=== PATIENT | female | born 1980 | race American Indian/Alaskan Native ===

== ENCOUNTER 2018-01-14 07:54 | Day surgery (SDC) | payer OTHER ==
--- NOTE | 2018-01-12 11:17 | History and Physical Report ---
History of Present Illness Date of examination: 01/12/18 History of present illness: History of Present Illness: Patient has been reassessed/reevaluated. H&P has been reviewed. No interval changes. 37 YOBF with missed Patient denies any vaginal bleeding or cramping Medical and surgical treatment options discussed Discussed risks and benefits of expectant management, treatments with medications and dilatation and curretage. Patient desires D&C Blood type O positive Menstrual History: Previous Best Working EDC: 07/11/2018 LMP (date): 10/04/2017 LMP - Character: normal LMP - Reliable: definite Menarche: 16 Menses interval: 30 days Menstrual flow: 4-5 days Past History : 4 Term Births: 3 Premature Births: 0 Living Children: 3 Para: 3 Mult. Births: 0 Prev : 3 Prev. attempt? 0 Aborta: 0 Elect. Ab: 0 Spont. Ab: 0 Ectopics: 0 # 1 Delivery date: 1998 Weeks Gestation: term Delivery type: Sex: Female weight: 5-15 # 2 Delivery date: 2006 Weeks Gestation: term Delivery type: weight: ? 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 of genital herpes: no Hx of STD: none Current Allergies: No known allergies Past Medical History: Negative Past Medical History Past Surgical History: x 3 Family History Summary: Has Family History of Coronary Heart Disease - Please disregard relationships chosen - Entered On: 11/19/2014 Has Family History of Diabetes - Please disregard relationships chosen - Entered On: 11/19/2014 Has Family History of CVA or Stroke - Please disregard relationships chosen - Entered On: 11/19/2014 Has Family History of Hypertension - Please disregard relationships chosen - Entered On: 11/19/2014 Has No Family History of Breast Cancer - Please disregard relationships chosen - Entered On: 11/19/2014 Has No Family History of Colon Cancer - Please disregard relationships chosen - Entered On: 11/19/2014 Has No Family History of Ovarvian Cancer - Please disregard relationships chosen - Entered On: 11/19/2014 Social History: [place] [employer] Patient is single Smoking History: Patient has never smoked. Risk Factors: Smoked Tobacco Use: Never smoker Smokeless Tobacco Use: Never Passive smoke exposure: no Drug use: no HIV high-risk behavior: no Alcohol use: no Exercise: no Seatbelt use: 100 % Review of Systems General Complains of fatigue. Denies fever, chills, sweats, anorexia, weakness, malaise, weight loss and sleep disorder. Denies vaginal discharge, incontinence, dysuria, hematuria, urinary frequency, amenorrhea, menorrhagia, abnormal vaginal bleeding, pelvic pain, genital sores, decreased libido, painful periods, painful sex, urinary urgency, hot flashes, vaginal dryness, vaginal itching and vaginal odor. CV Denies chest pains, palpitations, syncope, dyspnea on exertion, orthopnea, PND and peripheral edema. Resp Denies cough, dyspnea at rest, excessive sputum, hemoptysis, wheezing and pleurisy. GI Complains of nausea. Denies vomiting, diarrhea, constipation, change in bowel habits, abdominal pain, melena, hematochezia, jaundice, gas/bloating, indigestion/heartburn, dysphagia and odynophagia. Breast Denies left breast lump, right breast lump, nipple discharge, bloody discharge from nipple, breast pain, abnormal mammogram and breast enlargement. Psych Denies depression, anxiety, irritability and mood swings. Past History Past Medical History: other (See HPI) Past Surgical History: , Other (See HPI) Social history: other (See HPI) Family history: other (See HPI) Medications and Allergies Allergies Allergy/AdvReac Type Severity Reaction Status Date / Time shrimp Allergy Anaphylaxis Verified 01/14/18 08:25 Home Medications Medication Instructions Recorded Confirmed Last Taken Type Acetaminophen [Tylenol Extra 500 mg PO Q6HR PRN 01/14/18 01/14/18 01/13/18 History Strength] Review of Systems Constitutional: other (See HPI) Exam - Physical Exam Narrative exam: HEENT: normocephalic, no lesions or deformities Skin no abnormal lesions or rashes Chest: respiratory effort normal, clear to auscultation Breasts: skin/areolae normal, no masses, no nipple discharge, no erythema/warmth /tenderness, and axillae normal. 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 No evidence of cystocele or rectocele. Cervix: normal appearance, no lesions, no discharge Uterus: normal position, midline, mobile Adnexae: no masses or tenderness Rectovaginal: exam defered Assessment and Plan - Patient Problems (1) Missed Current Visit: No Status: Acute Plan to address problem: Discussed risk of surgery including infection, bleeding and risk of perforating her uterus. Questions answered. Patient understands and desires to proceed
[~2018-01-14 07:54] MED LIST: MORPHINE IV PRN; PERCOCET 5/325 PO PRN; TORADOL IV PRN; ZOFRAN IV PRN
[2018-01-14] MEDS ORDERED: VERSED IV NR (08:00)
[2018-01-14] MEDS ORDERED: PEPCID IV NR (08:00)
[2018-01-14] MEDS ORDERED: LACTATED RINGERS 1,000 ML IV SCH (08:00)
[2018-01-14] MEDS ORDERED: PEPCID PO NR (08:00)
[2018-01-14] MEDS ORDERED: REGLAN PO NR (08:00)
[2018-01-14] MEDS ORDERED: TRANSDERM-SCOP TD NR (08:00)
[2018-01-14] MEDS ORDERED: NACL BACTERIOSTATIC INFILTRATI ONE (08:33)
--- NOTE | 2018-01-14 08:44 | Anesthesia Consultation ---
Anesthesia Consult and Med Hx Date of service: 01/14/18 - Airway Anesthetic Teeth Evaluation: Good ROM Head & Neck: Adequate Mental/Hyoid Distance: Adequate Mallampati Class: Class II Intubation Access Assessment: Probably Good - Pulmonary Exam CTA: Yes - Cardiac Exam Cardiac Exam: RRR - Pre-Operative Health Status ASA Pre-Surgery Classification: ASA1 Proposed Anesthetic Plan: General - Pulmonary Hx Smoking: No Hx Asthma: Yes (as a child) - Cardiovascular System Hx Hypertension: No - Central Nervous System Hx Seizures: No CVA: No Hx Psychiatric Problems: No - Endocrine Hx End Stage Renal Disease: No Hx Insulin Dependent Diabetes: No - Other Systems Hx Cancer: No Hx Obesity: No
--- NOTE | 2018-01-14 08:44 | Anesthesia Day of Surgery ---
Anesthesia Day of Surgery - Day of Surgery Patient Examined: Yes Patient H&P Reviewed: Yes Patient is NPO: Yes
[2018-01-14 08:57] LABS: Basophils # (Auto) 0.1 K/mm3 (0.0-0.1); Basophils % (Auto) 0.8 % (0.0-1.8); Eosinophils # (Auto) 0.3 K/mm3 (0.0-0.4); Eosinophils % (Auto) 3.4 % (0.0-4.3); Hematocrit 38.6 % (30.3-42.9); Hemoglobin 12.7 gm/dl (10.1-14.3); Lymphocytes # (Auto) 2.1 K/mm3 (1.2-5.4); Lymphocytes % (Auto) 27.9 % (13.4-35.0); Mean Corpuscular HGB Conc 33 % (30-34); Mean Corpuscular Hemoglobin 28 pg (28-32); Mean Corpuscular Volume 85 fl (79-97); Monocytes # (Auto) 0.8 K/mm3 (0.0-0.8); Platelet Count 317 K/mm3 (140-440); Red Blood Count 4.52 M/mm3 (3.65-5.03); Red Cell Distribution Width 14.2 % (13.2-15.2)
[2018-01-14] MEDS ORDERED: XYLOCAINE MPF 2% ONE (09:00)
[2018-01-14] MEDS ORDERED: DIPRIVAN 10 MG/ML IV ONE (09:00)
[2018-01-14] MEDS ORDERED: DECADRON ONE (09:23)
[2018-01-14] MEDS ORDERED: ZOFRAN ONE (09:23)
[2018-01-14] MEDS ORDERED: METHERGINE IM ONE ×2 (09:28→09:33)
[2018-01-14] MEDS ORDERED: SUBLIMAZE ONE (09:30)
[2018-01-14] MEDS ORDERED: SILVER NITRATE TP ONE ×2 (09:40→09:42)
--- NOTE | 2018-01-14 09:51 | Short Stay Summary ---
Short Stay Documentation Date of service: 01/14/18 - History H&P: dictated Past Medical History: other (See HPI) Past Surgical History: , Other (See HPI) Social history: other (See HPI) - Allergies and Medications Current Medications: Allergies shrimp Allergy (Verified 01/14/18 08:25) Anaphylaxis Home Medications Medication Instructions Recorded Confirmed Last Taken Type Acetaminophen [Tylenol Extra 500 mg PO Q6HR PRN 01/14/18 01/14/18 01/13/18 History Strength] Active Medications Famotidine (Pepcid) 20 mg PO PREOP NR Stop: 01/14/18 23:59 Last Admin: 01/14/18 08:39 Dose: 20 mg Lactated Ringer's (Lactated Ringers) 1,000 mls @ 75 mls/hr IV DIRECT AALIYAH Last Admin: 01/14/18 08:45 Dose: 75 mls/hr Ketorolac Tromethamine (Toradol) 30 mg IV ONCE PRN PRN Reason: Pain, Moderate (4-6) Metoclopramide HCl (Reglan) 10 mg PO PREOP NR Stop: 01/14/18 23:59 Last Admin: 01/14/18 08:39 Dose: 10 mg Midazolam HCl (Versed) 2 mg IV PREOP NR Stop: 01/14/18 23:59 Last Admin: 01/14/18 09:00 Dose: 2 mg Morphine Sulfate (Morphine) 2 mg IV Q10MIN PRN PRN Reason: Pain, Moderate (4-6) Stop: 01/14/18 13:00 Ondansetron HCl (Zofran) 4 mg IV ONCE PRN PRN Reason: Nausea And Vomiting Oxycodone/Acetaminophen (Percocet 5/325) 1 tab PO ONCE PRN PRN Reason: Pain, Moderate (4-6) - Brief post op/procedure progress note Date of procedure: 01/14/18 (see dictated op note) - Hospital course Hospital course: Patient was admitted underwent the above him procedure without any complications. Patient will be discharged with follow-up in office in 1-2 weeks for postop check. - Disposition Condition at discharge: Good Disposition: DC-01 TO HOME OR SELFCARE - Discharge Diagnoses (1) Missed Status: Acute Short Stay Discharge Plan Activity: advance as tolerated Diet: regular Additional Instructions: Patient to call office for fever chills nausea, vomiting.heavy vaginal bleeding or pain uncontrolled by pain medication. Follow up with: MIKHAIL GOULD MD [Primary Care Provider] - 7 Days Prescriptions: Methylergonovine [Methergine] 0.2 mg PO Q8HR #7 tablet Ibuprofen [Motrin 800 MG tab] 800 mg PO Q6H PRN #30 tablet PRN Reason: Pain Acetaminophen/Codeine [Tylenol #3] 1 tab PO Q4HR PRN #10 tablet PRN Reason: Pain Doxycycline [Vibramycin CAP] 100 mg PO Q12HR #14 capsule
--- NOTE | 2018-01-14 09:57 | Operative Report ---
Operative Report Operative Report: Date of procedure: 01/24/2018 Pre-operative diagnosis: Missed Post-operative diagnosis: Same Procedure name(s): Suction dilatation and curettage Surgeon: Satya Jaramillo MD Cad Detailer: [] Anesthesia: General EBL: 50 mL Complications: None Findings: A moderate amount of tissue consistent with products of conception Specimen(s): Uterine contents Procedure: The patient was brought operating room where general anesthesia was induced without difficulty. Patient was placed in dorsal lithotomy position prepped and draped in the usual sterile manner. Rubber catheter was used to empty her bladder. Speculum placed in the vagina. Tenaculum was placed at 12: 00. The cervix was dilated progressively with Hegar dilators. A 9 mm suction catheter was placed through the cervical os. Several passes of the suction catheter removed the uterine contents. General curettage was done with a banjo curettte. On until a gritty sensation was felt throughout the uterine cavity. Further suction with the suction curettage revealed no further products. All instruments were removed patient was hemostatic. She was awakened in the operating room and accompanied to recovery room in good condition.
[2018-01-14] MEDS ORDERED: TORADOL ONE (10:02)
[2018-01-14 11:11] VITALS: BP 112/72
--- NOTE | 2018-01-14 11:25 | Post Anesthesia Evaluation ---
- Post Anesthesia Evaluation Patient Participated: Yes Airway Patent: Yes Stable Respiratory Function: Yes Nausea/Vomiting: No Temp > 96.8F: Yes Pain Manageable: Yes Adequeate Hydration: Yes Anesthesia Complications: No
== END 2018-01-14 11:30 | disposition home or self-care (01) ==
LOC: OR 07:54
PROVIDERS: ATTEND Obstetrics & Gynecology
DX: O02.1 Missed abortion (principal); J45.909 Unspecified asthma, uncomplicated; Z98.890 Other specified postprocedural states; Z88.8 Allergy status to other drugs, medicaments and biological substances
CPT/HCPCS: 36415; 59820; 85025; 88305; J1100; J1885; J2210; J2250; J2405; J2704; J3010; J7120